=== PATIENT | male | born 1935 | race Caucasian/White ===

== ENCOUNTER → 2018-08-16 | Outpatient (CLI) | payer OTHER | END | disposition home or self-care (01) | LOC: NUCLEAR 07:26 | DX: C61 Malignant neoplasm of prostate (principal); Z08 Encounter for follow-up examination after completed treatment for malignant neoplasm | CPT/HCPCS: 78306; 78320; A9503 ==

== ENCOUNTER 2019-03-25 08:22 | Outpatient (CLI) | payer OTHER | END 2019-03-25 08:23 | disposition home or self-care (01) | LOC: TOM 08:22 | DX: C61 Malignant neoplasm of prostate (principal) | CPT/HCPCS: 74177; Q9965 ==

== ENCOUNTER 2019-03-29 09:01 | Outpatient (CLI) | payer OTHER | END 2019-03-29 09:10 | disposition home or self-care (01) | LOC: NUCLEAR 09:01 | DX: C61 Malignant neoplasm of prostate (principal) | CPT/HCPCS: 78306; 78320; A9503 ==

== ENCOUNTER 2019-12-13 08:19 | Outpatient (CLI) | payer OTHER | END 2019-12-13 08:27 | disposition home or self-care (01) | LOC: SONOGRAMA 08:19 | PROVIDERS: ATTEND Internal Medicine | DX: I70.0 Atherosclerosis of aorta (principal); E78.2 Mixed hyperlipidemia; R94.6 Abnormal results of thyroid function studies; J30.89 Other allergic rhinitis; K57.30 Diverticulosis of large intestine without perforation or abscess without bleeding; N32.3 Diverticulum of bladder; K59.09 Other constipation; R97.20 Elevated prostate specific antigen [PSA]; M15.0 Primary generalized (osteo)arthritis; M81.0 Age-related osteoporosis without current pathological fracture; Z68.26 Body mass index [BMI] 26.0-26.9, adult; Z87.11 Personal history of peptic ulcer disease; Z85.46 Personal history of malignant neoplasm of prostate; R33.8 Other retention of urine ==

== ENCOUNTER 2020-03-14 13:49 | Outpatient (CLI) | payer OTHER | END 2020-03-14 14:02 | disposition home or self-care (01) | LOC: SONOGRAMA 13:49 | PROVIDERS: ATTEND Internal Medicine | DX: I70.0 Atherosclerosis of aorta (principal); E78.2 Mixed hyperlipidemia; R94.6 Abnormal results of thyroid function studies; J30.89 Other allergic rhinitis; K57.30 Diverticulosis of large intestine without perforation or abscess without bleeding; K59.00 Constipation, unspecified; N32.3 Diverticulum of bladder; R97.20 Elevated prostate specific antigen [PSA]; M15.0 Primary generalized (osteo)arthritis; M81.0 Age-related osteoporosis without current pathological fracture; Z68.26 Body mass index [BMI] 26.0-26.9, adult; Z87.11 Personal history of peptic ulcer disease; Z85.46 Personal history of malignant neoplasm of prostate; R33.8 Other retention of urine ==

== ENCOUNTER 2020-07-19 12:04 | Emergency (ER) | payer OTHER ==
[~2020-07-19] VITALS: Ht 172.7 cm; Wt 78.0 kg
[2020-07-19] MEDS ORDERED: MULTI VITAMIN1 EACH PO (12:36)
[2020-07-19] MEDS ORDERED: VITAMIN C500 M6 PO (12:37)
[2020-07-19] MEDS ORDERED: ZINC50 M1 PO (12:37)
[2020-07-19] MEDS ORDERED: MEDROLPACK PO (16:21)
== END 2020-07-19 16:38 | disposition home or self-care (01) ==
LOC: ER 12:04
DX: K11.21 Acute sialoadenitis (principal); Z03.818 Encounter for observation for suspected exposure to other biological agents ruled out

== ENCOUNTER 2020-08-27 09:37 | Outpatient (CLI) | payer OTHER ==
[~2020-08-27 09:37] MED LIST: MEDROLPACK PO; MULTI VITAMIN1 EACH PO; VITAMIN C500 M6 PO; ZINC50 M1 PO
== END 2020-08-27 09:41 | disposition home or self-care (01) ==
LOC: LAB 09:37
PROVIDERS: ATTEND Urology
DX: R33.8 Other retention of urine (principal); C61 Malignant neoplasm of prostate

== ENCOUNTER 2020-08-30 08:41 | Outpatient (CLI) | payer OTHER | END 2020-08-30 08:58 | disposition HB | LOC: TOM 08:41 | PROVIDERS: ATTEND Urology | DX: C61 Malignant neoplasm of prostate (principal); R33.8 Other retention of urine | CPT/HCPCS: 72194; Q9965 ==

== ENCOUNTER 2022-10-09 08:00 | Outpatient (CLI) | payer OTHER | END 2022-10-09 08:02 | disposition home or self-care (01) | LOC: NUCLEAR 08:00 | DX: C61 Malignant neoplasm of prostate (principal) | CPT/HCPCS: 78815; A9552 ==

== ENCOUNTER 2022-11-06 07:26 | Outpatient (CLI) | payer OTHER | END 2022-11-06 07:27 | disposition home or self-care (01) | LOC: NUCLEAR 07:26 | DX: C61 Malignant neoplasm of prostate (principal) | CPT/HCPCS: 78306; A9503 ==